=== PATIENT | female | born 1995 | race African-American/Black ===

== ENCOUNTER 2017-07-31 18:33 | Emergency (ER) | payer OTHER ==
[2017-07-31] MEDS ORDERED: NS 0.9% 1000 ML* 1,000 ML IV ONE ×2 (18:54→20:09)
--- NOTE | 2017-07-31 19:03 | ED ---
Syncope/Near Syncope - HPI Summary HPI Summary: 21F presents with syncopal episode today. This was the first time she passed out. She states feels lightheaded and weak. 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 She states she just not remember passing out but apparently she was out for 5 mins. She denies any injury. She denies any headache or neck pain. She denies any extremity pain. She states she has not eaten anything since breakfast. She denies any change in vision. She denies any nausea or vomiting. She denies any diaphoresis. She denies any chest pain or SOB. She denies any blood in her stool. She denies any fever. She denies any medical history. She denies any family history of CAD. - History Of Current Complaint Chief Complaint: EDSyncope Time Seen by Provider: 07/31/17 18:54 - Allergies/Home Medications Allergies/Adverse Reactions: Allergies Allergy/AdvReac Type Severity Reaction Status Date / Time No Known Allergies Allergy Verified 07/31/17 18:41 PMH/Surg Hx/FS Hx/Imm Hx Endocrine/Hematology History: Denies: Hx Anticoagulant Therapy, Hx Diabetes Cardiovascular History: Denies: Hx Hypertension Infectious Disease History: No Infectious Disease History: Denies: Traveled Outside the [place] in Last 30 Days - Family History Known Family History: Negative: Cardiac Disease - Social History Alcohol Use: None Substance Use Type: Reports: None Smoking Status (MU): Never Smoked Tobacco Review of Systems Negative: Fever Negative: Chest Pain Negative: Shortness Of Breath Positive: Syncope All Other Systems Reviewed And Are Negative: Yes Physical Exam Triage Information Reviewed: Yes Vital Signs On Initial Exam: Initial Vitals Temp Pulse Resp BP Pulse Ox 98.6 F 73 16 109/78 100 07/31/17 18:40 07/31/17 18:40 07/31/17 18:40 07/31/17 18:40 07/31/17 18:40 Vital Signs Reviewed: Yes Appearance: Positive: Well-Appearing Skin: Positive: Warm, Dry Head/Face: Positive: Normal Head/Face Inspection Eyes: Positive: Normal, EOMI, MARIPOSA, Conjunctiva Clear ENT: Positive: Normal ENT inspection, Pharynx normal, TMs normal Respiratory/Lung Sounds: Positive: Clear to Auscultation, Breath Sounds Present Cardiovascular: Positive: Normal, RRR. Negative: Murmur Abdomen Description: Positive: Nontender, Soft Bowel Sounds: Positive: Present Musculoskeletal: Positive: Normal Neurological: Positive: Normal, Sensory/Motor Intact, Alert, Oriented to Person Place, Time, CN Intact II-III, Heel to Toe, Finger to Nose Psychiatric: Positive: Normal Diagnostics - Vital Signs Vital Signs Temp Pulse Resp BP Pulse Ox 07/31/17 18:40 98.6 F 73 16 109/78 100 - Laboratory Result Diagrams: 07/31/17 19:50 07/31/17 19:50 Lab Statement: Any lab studies that have been ordered have been reviewed, and results considered in the medical decision making process. - EKG No standard instances Cardiac Rate: NL EKG Rhythm: Sinus Rhythm ST Segment: Normal EKG Interpretation: normal sinus rhythm Re-Evaluation - Re-Evaluation First Eval Re-Evaluation Time: 20:41 Change: Improved Comment: feeling better after fluid, bp still 110/70 Second Eval Re-Evaluation Time: 21:01 Change: Improved Comment: feeling better, would like to go home Course/Dx Course Of Treatment: 21F presents with syncopal episode today. This was the first time she passed out. She states feels lightheaded and weak. 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 She states she has not eaten anything since breakfast. She denies any change in vision. She denies any nausea or vomiting. She denies any diaphoresis. She denies any chest pain or SOB. She denies any blood in her stool. She denies any fever. She denies any medical history. She denies any family history of CAD. on exam lungs CTA. heart RR with no mumur. normal neuro exam. normal ekg. labs wbc 12. troponin, d-dimer neg. gave fluids and patient feeling better. blood pressure is 110/70 so likely orthostatic cause to syncope. told to establish care with primary. patient understand and agrees with plan. - Diagnoses Differential Diagnosis/HQI/PQRI: Positive: Dysrhythmia, Hypoglycemia, Hypovolemia, Vasovagal Episode Provider Diagnoses: Syncope Discharge - Discharge Plan Condition: Good Disposition: HOME Patient Education Materials: Syncope (ED) Referrals: [facility] [Outside] Additional Instructions: Drink plenty of fluids Eat small snacks as tolerate through out the day Establish care with primary to follow up Return to ED if develop any new or worsening symptoms
[2017-07-31 20:12] LABS: Hematocrit 40 % (35-47); Hemoglobin 13.1 g/dl (12.0-16.0); Mean Corpuscular HGB Conc 32 g/dl (31-36); Mean Corpuscular Hemoglobin 28 pg (27-31); Mean Corpuscular Volume 85 fL (80-97); Mean Platelet Volume 10 um3 (7.4-10.4); Red Blood Count 4.75 10^6/ul (4.0-5.4); Red Cell Distribution Width 13 % (10.5-15); White Blood Count 11.9 10^3/ul (3.5-10.8)
[2017-07-31 20:16] LABS: Albumin 4.1 g/dL (3.2-5.2); BUN/Creatinine Ratio 9.2 (8-20); Calcium 10.1 mg/dL (8.6-10.3); EGFR African American 124.8 (>60); Magnesium 2.1 mg/dL (1.9-2.7); Potassium 3.9 mmol/L (3.5-5.0); Total Bilirubin 0.7 mg/dL (0.2-1.0); Total Protein 8.1 g/dL (6.4-8.9)
[2017-07-31 20:31] LABS: Urine Bilirubin Negative (Negative); Urine Glucose Negative (Negative); Urine Nitrite Negative (Negative)
[2017-07-31 20:57] LABS: TSH (Thyroid Stimulating Horm) 1.87 mcIU/mL (0.34-5.60)
[2017-07-31 21:22] VITALS: BP 104/73
== END 2017-07-31 21:22 | disposition home or self-care (01) ==
LOC: ED 18:33
DX: R55 Syncope and collapse (principal)
CPT/HCPCS: 36415; 80053; 81003; 82550; 83605; 83735; 84443; 84484; 85025; 85379; 93005; 99283